=== PATIENT | male | born 1955 | race Caucasian/White ===

== ENCOUNTER 2017-10-05 06:32 | Day surgery (SDC) | payer BC, OTHER ==
[~2017-10-05 06:32] MED LIST: Lactated Ringers 1,000 ML IV SCH
[2017-10-05] MEDS ORDERED: fentaNYL 100 MCG/2 ML SDV ONE (07:26)
[2017-10-05] MEDS ORDERED: Midazolam 1 MG/ML 2 ML SDV ONE (07:26)
[2017-10-05] MEDS ORDERED: Propofol 200 MG/20 ML SDV ONE (07:26)
--- NOTE | 2017-10-05 08:46 | OR ---
PREOPERATIVE DIAGNOSIS: History of polyps. POSTOPERATIVE DIAGNOSIS: Left colon diverticulosis, otherwise normal exam. PROCEDURE PROPOSED: Total flexible colonoscopy. PROCEDURE DONE: Total flexible colonoscopy. INDICATION: This is a 62-year-old gentleman, who comes in for a 5-year followup exam due to a history of polyps that were diagnosed on his previous screening colonoscopy. He denies any symptomatology and he has a negative family history for colon cancer. TECHNIQUE: The patient was brought to the endoscopy suite, and placed in left lateral decubitus position. He was sedated per [employer] with propofol. The flexible video colonoscope was then passed transanally and under visualization and advanced to the cecum. Examination revealed normal ascending, transverse, descending colon. He did have moderate diverticulosis through the sigmoid colon and somewhat up into the descending colon and the rectum was normal. There was no evidence of any polyps or colitis or other abnormalities and the scope was then withdrawn. The patient tolerated procedure well. FINAL IMPRESSION: 1. Left colon diverticulosis, otherwise normal exam. 2. History of prior polyps. PLAN: He should continue with colonic surveillance every 5 years hereafter due to his history of polyps. SCM: 10/05/2017 08:08:49 MODL: 10/05/2017 08:35:51 /[id number]
== END 2017-10-05 09:30 | disposition home or self-care (01) ==
LOC: VM.SDS 06:32
PROVIDERS: ATTEND Surgery
DX: Z12.11 Encounter for screening for malignant neoplasm of colon (principal); K57.30 Diverticulosis of large intestine without perforation or abscess without bleeding; I10 Essential (primary) hypertension; E78.5 Hyperlipidemia, unspecified; M17.0 Bilateral primary osteoarthritis of knee; E66.9 Obesity, unspecified; Z68.30 Body mass index [BMI] 30.0-30.9, adult; Z79.82 Long term (current) use of aspirin; Z79.899 Other long term (current) drug therapy; Z98.890 Other specified postprocedural states; Z86.010 Personal history of colon polyps; Z87.891 Personal history of nicotine dependence; Z80.42 Family history of malignant neoplasm of prostate
CPT/HCPCS: 45378; J2250; J2704; J3010; J7120

== ENCOUNTER 2023-01-25 08:11 | Day surgery (SDC) | payer MEDICARE, OTHER ==
[2023-01-25] MEDS ORDERED: Propofol 200 MG/20 ML SDV ONE ×2 (09:47→09:49)
[2023-01-25] MEDS ORDERED: Midazolam 1 MG/ML 2 ML SDV ONE (09:49)
[2023-01-25] MEDS ORDERED: fentaNYL 100 MCG/2 ML SDV ONE (09:49)
== END 2023-01-25 11:20 | disposition home or self-care (01) ==
LOC: VM.SDS 08:11
PROVIDERS: ATTEND Family Medicine
DX: Z12.11 Encounter for screening for malignant neoplasm of colon (principal); D12.3 Benign neoplasm of transverse colon; K57.30 Diverticulosis of large intestine without perforation or abscess without bleeding; I10 Essential (primary) hypertension; E78.00 Pure hypercholesterolemia, unspecified; Z80.0 Family history of malignant neoplasm of digestive organs; Z79.899 Other long term (current) drug therapy; Z87.891 Personal history of nicotine dependence
CPT/HCPCS: 00811; 45380; 88305; 88342; J2250; J2704; J3010; J7120